=== PATIENT | male | born 1960 | race African-American/Black ===

== ENCOUNTER 2017-10-22 19:13 | Inpatient (IN) | payer OTHER ==
[2017-10-22 19:27] VITALS: BMI 26.0
--- NOTE | 2017-10-22 21:14 | HP ---
CIWA Score - CIWA Score Nausea/Vomitin-Mild Nausea/No Vomiting Muscle Tremors: 3 Anxiety: 4-Mod. Anxious/Guarded Agitation: 4-Moderately Restless Paroxysmal Sweats: No Perspiration Orientation: 0-Oriented Tacttile Disturbances: 2-Mild Itch/Numbness/Burn Auditory Disturbances: 0-None Visual Disturbances: 0-None Headache: 3-Moderate CIWA-Ar Total Score: 17 Admission ROS BHS - HPI Chief Complaint: Alcohol withdrawal symptoms Allergies/Adverse Reactions: Allergies Allergy/AdvReac Type Severity Reaction Status Date / Time Penicillins Allergy Severe Hives Verified 10/22/17 19:55 History of Present Illness: 57 years old male with a long history of alcohol dependence is seeking admission to detox. Patient has been in previous detox and reports insignificant period of sobriety. She has diabetes type 2 on on insulin and anxiety. Denies suicide attempt and suicidal ideation at this time. Exam Limitations: No Limitations - Ebola screening Have you traveled outside of the country in the last 21 days: No Have you had contact with anyone from an Ebola affected area: No Have you been sick,other than usual withdrawal symptoms: No Do you have a fever: No - Review of Systems Constitutional: Chills, Night Sweats, Weakness EENT: reports: Blurred Vision Respiratory: reports: No Symptoms reported Cardiac: reports: No Symptoms Reported GI: reports: Diarrhea (x 3), Poor Appetite, Poor Fluid Intake, Abdominal cramping : reports: No Symptoms Reported Musculoskeletal: reports: Muscle Pain Integumentary: reports: Dryness Neuro: reports: Tremors Endocrine: reports: No Symptoms Reported Hematology: reports: No Symptoms Reported Psychiatric: reports: Anxious, Depressed Other Systems: Reviewed and Negative Patient History - Patient Medical History Hx Anemia: No Hx Asthma: No Hx Chronic Obstructive Pulmonary Disease (COPD): No Hx Cancer: No Hx Cardiac Disorders: No Hx Congestive Heart Failure: No Hx Hypertension: No Hx Hypercholesterolemia: No Hx Pacemaker: No HX Cerebrovascular Accident: No Hx Seizures: No Hx Diabetes: Yes (Humolog and Basalgar) Hx Gastrointestinal Disorders: No Hx Liver Disease: No Hx Genitourinary Disorders: No Hx Sexually Transmitted Disorders: No Hx Renal Disease (ESRD): No Hx Thyroid Disease: No Hx Human Immunodeficiency Virus (HIV): No (Negative 1996) Hx Hepatitis C: No Hx Depression: Yes (Not on medication) Hx Suicide Attempt: No Hx Bipolar Disorder: No Hx Schizophrenia: No - Patient Surgical History Past Surgical History: No - PPD History Previous Implant?: Yes Documented Results: Negative w/o proof Implanted On Prior [facility] Admission?: No PPD to be Administered?: Yes - Reproductive History Patient is a Female of Child Bearing Age (11 -55 yrs old): No (Male) - Smoking Cessation Smoking history: Current every day smoker Have you smoked in the past 12 months: Yes Aproximately how many cigarettes per day: 2 Hx Chewing Tobacco Use: No Initiated information on smoking cessation: Yes 'Breaking Loose' booklet given: 10/22/17 - Substance & Tx. History Hx Alcohol Use: Yes Hx Substance Use: Yes Substance Use Type: Alcohol, Cocaine Hx Substance Use Treatment: Yes ([facility] 1999) - Substances Abused Alcohol Route: Oral Frequency: Daily Amount used: BEER- 4 (40oz) Age of first use: 11 Date of Last Use: 10/22/17 Cocaine Route: Smoking Frequency: 3-6 times per week Amount used: $50- $300 Age of first use: 30 Date of Last Use: 10/15/17 Family Disease History - Family Disease History Family Disease History: Diabetes: Mother, Brother Admission Physical Exam S - Vital Signs Vital Signs: Vital Signs - 24 hr 10/22/17 19:25 Temperature 98.8 F Pulse Rate 60 Respiratory 18 Rate Blood Pressure 141/78 - Physical General Appearance: Yes: Moderate Distress HEENTM: Yes: EOMI, Normal ENT Inspection, Normocephalic, Normal Voice, LIV Respiratory: Yes: Lungs Clear, Normal Breath Sounds, No Respiratory Distress Neck: Yes: Supple Breast: Yes: Breast Exam Deferred Cardiology: Yes: Regular Rhythm, Regular Rate Abdominal: Yes: Normal Bowel Sounds Genitourinary: Yes: Within Normal Limits Back: Yes: Normal Inspection Musculoskeletal: Yes: Within Normal Limits Extremities: Yes: Tremors Neurological: Yes: Alert, Normal Mood/Affect Integumentary: Yes: Warm Lymphatic: Yes: Within Normal Limits - Diagnostic (1) Alcohol dependence with uncomplicated withdrawal Current Visit: Yes Status: Chronic (2) Diabetes type 2, uncontrolled Current Visit: Yes Status: Chronic (3) Depression Current Visit: Yes Status: Chronic Qualifiers: Depression Type: unspecified Qualified Code(s): F32.9 - Major depressive disorder, single episode, unspecified Cleared for Admission [facility] - Detox or Rehab [facility] Level of Care: Medically Managed Detox Regimen/Protocol: Librium [facility] Breath Alcohol Content Breath Alcohol Content: 0 Urine Drug Screen - Results Drug Screen Negative: Yes
[2017-10-22] MEDS ORDERED: MAGNESIUM CITRATE 300 ML BOTTLE PO PRN (21:28)
[2017-10-22] MEDS ORDERED: MAGNESIUM HYDROX 2400MG/30ML ORAL SUSPENSION 30 ML CUP PO PRN (21:28)
[2017-10-22] MEDS ORDERED: NICOTINE POLACRILEX 2 MG GUM BC PRN (21:28)
[2017-10-22] MEDS ORDERED: chlordiazePOXIDE HCL 25 MG CAPSULE PO PRN (21:28)
[2017-10-22] MEDS ORDERED: ACETAMINOPHEN 325 MG TABLET (FP) PO PRN (21:28)
[2017-10-22] MEDS ORDERED: LOPERAMIDE HCL 2 MG CAPSULE PO PRN (21:28)
[2017-10-22] MEDS ORDERED: MENTHOL/PHENOL 1 EACH UD MM PRN (21:28)
[2017-10-22] MEDS ORDERED: MAG HYDROX/AL HYDROX/SIMETH 30 ML UNIT-DOSE CUP PO PRN (21:28)
[2017-10-22] MEDS ORDERED: P-EPHED 60MG/TRIPROLIDI 2.5MG TABLET PO PRN (21:28)
[2017-10-22] MEDS ORDERED: guaiFENesin/D-METHORPHAN HB 10 ML UNIT-DOSE CUPS PO PRN (21:28)
[2017-10-22] MEDS ORDERED: PATIENT'S OWN MEDICATION (NON-FORMULARY) (Insulin Lispro [Humalog] 5 UNIT) SQ SCH (22:00)
[2017-10-22] MEDS ORDERED: MELATONIN 5 MG TABLETS PO PRN (22:00)
[2017-10-22] MEDS: chlordiazePOXIDE HCL 25 MG CAPSULE PO SCH (22:45)
[2017-10-22] MEDS: THIAMINE HCL 100 MG TABLET (FP) PO SCH (22:48)
[2017-10-23 01:35] LABS: URINE APPEARANCE CLEAR; URINE BILIRUBIN NEGATIVE (<2.0 mg/dL); URINE COLOR YELLOW; URINE GLUCOSE (UA) 1+ (NEGATIVE); URINE KETONE NEGATIVE (NEGATIVE); URINE LEUK ESTERASE NEGATIVE (NEGATIVE); URINE NITRITE NEGATIVE (NEGATIVE); URINE PROTEIN NEGATIVE (NEGATIVE); URINE UROBILINOGEN NEGATIVE mg/dL (0.2-1.0)
[2017-10-23] MEDS: chlordiazePOXIDE HCL 25 MG CAPSULE PO SCH ×4 (05:21→22:07)
[2017-10-23] MEDS: INSULIN (NOVOLOG) ASPART 100 UNITS/ML 10ML VIAL SQ SCH ×4 (07:40→21:43)
--- NOTE | 2017-10-23 09:23 | PN ---
S CIWA - CIWA Score Nausea/Vomitin Muscle Tremors: 3 Anxiety: 3 Agitation: 3 Paroxysmal Sweats: 1-Minimal Palms Moist Orientation: 0-Oriented Tacttile Disturbances: 1-Very Mild Itch/Numbness Auditory Disturbances: 1-Very Mild Visual Disturbances: 0-None Headache: 2-Mild CIWA-Ar Total Score: 17 BHS Progress Note (SOAP) Subjective: alert,irritable,anxious,interrupted sleep,tremor Objective: 10/23/17 09:20 Vital Signs Temperature 97.7 F 10/23/17 09:10 Pulse Rate 59 L 10/23/17 09:10 Respiratory Rate 18 10/23/17 09:10 Blood Pressure 137/92 10/23/17 09:10 O2 Sat by Pulse Oximetry (%) 10/23/17 09:21 ekg sinus bradycardia 55/min qt/cad625/422 no chest pain,no sob,no dizziness 10/23/17 09:22 Laboratory Last Values POC Glucometer 234 UNITS (80-120) 10/23/17 05:22 Urine Color Yellow 10/22/17 23:00 Urine Appearance Clear 10/22/17 23:00 Urine pH 6.0 (5.0-8.0) 10/22/17 23:00 Ur Specific [place] 1.020 (1.001-1.035) 10/22/17 23:00 Urine Protein Negative (NEGATIVE) 10/22/17 23:00 Urine Glucose (UA) 1+ (NEGATIVE) H 10/22/17 23:00 Urine Ketones Negative (NEGATIVE) 10/22/17 23:00 Urine Blood Negative (NEGATIVE) 10/22/17 23:00 Urine Nitrite Negative (NEGATIVE) 10/22/17 23:00 Urine Bilirubin Negative (<2.0 mg/dL) 10/22/17 23:00 Urine Urobilinogen Negative mg/dL (0.2-1.0) 10/22/17 23:00 Ur Leukocyte Esterase Negative (NEGATIVE) 10/22/17 23:00 labs pending Assessment: 10/23/17 09:22 withdrawal symptom Plan: continue detox
--- NOTE | 2017-10-23 09:49 | EKG ---
Test Reason : Blood Pressure : / mmHG Vent. Rate : 055 BPM Atrial Rate : 055 BPM P-R Int : 150 ms QRS Dur : 088 ms QT Int : 442 ms P-R-T Axes : 064 002 032 degrees QTc Int : 422 ms SINUS BRADYCARDIA OTHERWISE NORMAL ECG NO PREVIOUS ECGS AVAILABLE Confirmed by David Joshi MD ([id number]) on 10/23/2017 9:49:14 AM Referred By: Confirmed By:David Joshi MD
[2017-10-23] MEDS: PRENATAL VITAMINS W/ FOLIC ACID TABLET (FP) PO SCH (10:11)
[2017-10-23] MEDS: NICOTINE 14 MG/24 HOURS TOPICAL PATCH TD SCH (10:12)
[2017-10-23 10:36] LABS: HEMATOCRIT 37.9 % (35.4-49); MCH 27.8 pg (25.7-33.7); MCHC 31.8 g/dl (32.0-35.9); MEAN CELL VOLUME 87.7 fl (80-96); MEAN PLT VOLUME 8.3 fl (7.5-11.1); PLATELET COUNT 246 K/MM3 (134-434); RBC 4.32 M/mm3 (4.00-5.60); RDW 13.9 % (11.9-15.9); WHITE BLOOD COUNT 4.7 K/mm3 (4.0-10.0)
[2017-10-23 10:53] LABS: CHLORIDE 105 mmol/L (98-107); POTASSIUM 4.3 mmol/L (3.5-5.1); SODIUM 140 mmol/L (136-145)
[2017-10-23 11:01] LABS: ALBUMIN 3.4 g/dl (3.4-5.0); ALK PHOS 56 U/L (45-117); ANION GAP 10 MMOL/L (8-16); BILIRUBIN,TOTAL 0.7 mg/dL (0.2-1.0); BLOOD UREA NITROGEN 13 mg/dL (7-18); CALCIUM 8.6 mg/dL (8.5-10.1); CO2 25 mmol/L (21-32); CREATININE 1.1 mg/dL (0.7-1.3); SGOT/AST 19 U/L (15-37); SGPT/ALT 32 U/L (12-78); TOT PROT 6.6 g/dl (6.4-8.2)
[2017-10-23 11:12] LABS: GLUCOSE,RANDOM 313 mg/dL (74-106)
[2017-10-23] MEDS ORDERED: INSULIN (NOVOLOG) ASPART 100 UNITS/ML 10ML VIAL ONE ×3 (11:35→21:11)
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
[2017-10-23] MEDS ORDERED: hydrOXYzine PAMOATE 25 MG CAPSULE (FP) PO PRN (12:57)
[2017-10-23] MEDS: THIAMINE HCL 100 MG TABLET (FP) PO SCH (22:07)
[2017-10-23] MEDS: IBUPROFEN 400 MG TABLET (FP) PO PRN (22:08)
[2017-10-24] MEDS: chlordiazePOXIDE HCL 25 MG CAPSULE PO SCH ×3 (05:26→17:03)
[2017-10-24] MEDS: INSULIN (NOVOLOG) ASPART 100 UNITS/ML 10ML VIAL SQ SCH ×4 (07:16→22:10)
[2017-10-24] MEDS ORDERED: INSULIN (NOVOLOG) ASPART 100 UNITS/ML 10ML VIAL ONE ×5 (08:13→22:12)
--- NOTE | 2017-10-24 08:52 | PN ---
S CIWA - CIWA Score Nausea/Vomitin Muscle Tremors: 3 Anxiety: 2 Agitation: 2 Paroxysmal Sweats: 1-Minimal Palms Moist Orientation: 0-Oriented Tacttile Disturbances: 1-Very Mild Itch/Numbness Auditory Disturbances: 1-Very Mild Visual Disturbances: 0-None Headache: 2-Mild CIWA-Ar Total Score: 15 BHS Progress Note (SOAP) Subjective: alert,irritable,anxious,interrupted sleep,tremor Objective: 10/24/17 08:51 Vital Signs Temperature 96.4 F L 10/24/17 06:33 Pulse Rate 66 10/24/17 06:33 Respiratory Rate 18 10/24/17 06:33 Blood Pressure 128/78 10/24/17 06:33 O2 Sat by Pulse Oximetry (%) Assessment: 10/24/17 08:51 withdrawal symptom Plan: continue detox,psychiatric reevaluation by patient's request
[2017-10-24] MEDS: PRENATAL VITAMINS W/ FOLIC ACID TABLET (FP) PO SCH (10:34)
[2017-10-24] MEDS: NICOTINE 14 MG/24 HOURS TOPICAL PATCH TD SCH (10:35)
--- NOTE | 2017-10-24 17:11 | PN ---
Psychiatric Progress Note Vital Signs: Vital Signs Period Temp Pulse Resp BP Sys/Tadeo Pulse Ox Last 24 Hr 96.4 F-98.1 F 66-91 18-18 120-136/72-88 Date of Session: 10/24/17 Chief Complaint:: "I can't sleep through the night and i still have anxiety." HPI: Pt. admitted to for alcohol, cocaine, and marijuana dependence. ROS: diabetes Current Medications: Active Medications Generic Name Dose Route Start Last Admin Trade Name Freq PRN Reason Stop Dose Admin Acetaminophen 650 mg 10/22/17 21:28 Tylenol - PO Q4H PRN FEVER Al Hydroxide/Mg Hydroxide 30 ml 10/22/17 21:28 Mylanta Oral Suspension - PO Q6H PRN DYSPEPSIA Chlordiazepoxide HCl 15 mg 10/24/17 23:00 Librium - PO 10/25/17 17:01 [id number] DALE Chlordiazepoxide HCl 25 mg 10/22/17 21:28 Librium - PO 10/25/17 21:27 Q4H PRN WITHDRAWAL(CONT SUBST) Chlordiazepoxide HCl 10 mg 10/25/17 23:00 Librium - PO 10/26/17 17:01 [id number] DALE Eucalyptus/Menthol/Phenol/Sorbitol 1 each 10/22/17 21:28 Cepastat Lozenge - MM Q4H PRN SORE THROAT Guaifenesin 10 ml 10/22/17 21:28 Robitussin Dm - PO Q6H PRN COUGH Hydroxyzine Pamoate 25 mg 10/23/17 12:57 Vistaril - PO Q4H PRN ANXIETY Ibuprofen 400 mg 10/22/17 21:28 10/23/17 22:08 Motrin - PO 400 mg Q6H PRN Administration PAIN LEVEL 4-6 Insulin Aspart 0 units 10/23/17 16:30 10/24/17 17:05 Novolog Vial SQ 2 units ACHS DALE Administration Protocol Loperamide HCl 4 mg 10/22/17 21:28 Imodium - PO Q6H PRN DIARRHEA Magnesium Citrate 300 ml 10/22/17 21:28 Citroma - PO Q48H PRN CONSTIPATION Magnesium Hydroxide 30 ml 10/22/17 21:28 Milk Of Magnesia - PO DAILY PRN CONSTIPATION Melatonin 5 mg 10/22/17 22:00 10/23/17 22:07 Melatonin PO 5 mg HS PRN Administration INSOMNIA Nicotine 14 mg 10/23/17 10:00 10/24/17 10:35 Nicoderm Patch - TD 14 mg DAILY DALE Administration Nicotine Polacrilex 2 mg 10/22/17 21:28 Nicorette Gum - BC Q2H PRN NICOTINE REPLACEMENT RX Multivit/Folic Acid/Iron 1 tab 10/23/17 10:00 10/24/17 10:34 Vitamins (Sjr) - PO 1 tab DAILY DALE Administration Pseudoephedrine/Triprolidine 1 combo 10/22/17 21:28 Actifed - PO TID PRN NASAL CONGESTION Thiamine HCl 100 mg 10/22/17 22:00 10/23/17 22:07 Vitamin B1 - PO 100 mg HS DALE Administration Medication(s) Change(s): Yes. Will increase vistaril to 50mg q4 and melatonin to 8mg qhs Current Side Effect: No Lab tests ordered: No Lab tests reviewed: Yes Provider note:: Supervisory Forester met with patient for psychiatric follow up. Pt. seen by administrative underwriter yesterday. Patient reports difficulty sleeping through the night and increase anxiety. Vistaril 25mg increased to 50mg and Melatonin 5mg qhs increased to 8mg. Pt. refusing alternative sleep aid. Pt. preferred to accept natual sleep aid but at a higher dose. Sleep hygiene discussed. Sleep hygiene discussed. Pt. satisifed and receptive to feedback. Will continue to monitor. Total face to face time:: 25 Mental Status Exam - Mental Status Exam Alert and Oriented to: Time, Place, Person Cognitive Function: Good Patient Appearance: Well Groomed Mood: Hopeful, Euthymic Affect: Appropriate Patient Behavior: Appropriate, Cooperative Speech Pattern: Clear, Appropriate Voice Loudness: Normal Thought Process: Intact, Goal Oriented Thought Disorder: Not Present Hallucinations: Denies Suicidal Ideation: Denies Homicidal Ideation: Denies Insight/Judgement: Poor Sleep: Poorly Appetite: Fair Muscle strength/Tone: Normal Gait/Station: Normal Psychiatric Treatment Plan - Problem List (1) Anxiety Current Visit: Yes (2) Alcohol dependence with uncomplicated withdrawal Current Visit: Yes (3) Insomnia Current Visit: Yes
[2017-10-24] MEDS ORDERED: hydrOXYzine PAMOATE 25 MG CAPSULE (FP) PO PRN (17:13)
[2017-10-24] MEDS ORDERED: MELATONIN 5 MG TABLETS PO PRN (22:00)
[2017-10-24] MEDS: MELATONIN 5 MG, MELATONIN 3 MG PO PRN (22:13)
[2017-10-24] MEDS: THIAMINE HCL 100 MG TABLET (FP) PO SCH (22:13)
[2017-10-24] MEDS: IBUPROFEN 400 MG TABLET (FP) PO PRN (22:14)
[2017-10-24] MEDS: chlordiazePOXIDE 5 MG CAPSULE PO SCH (22:14)
[2017-10-25] MEDS: chlordiazePOXIDE 5 MG CAPSULE PO SCH ×3 (06:00→21:15)
[2017-10-25] MEDS ORDERED: INSULIN (NOVOLOG) ASPART 100 UNITS/ML 10ML VIAL ONE ×4 (06:10→22:59)
[2017-10-25] MEDS: INSULIN (NOVOLOG) ASPART 100 UNITS/ML 10ML VIAL SQ SCH ×4 (07:00→23:22)
[2017-10-25] MEDS: PRENATAL VITAMINS W/ FOLIC ACID TABLET (FP) PO SCH (10:14)
[2017-10-25] MEDS: NICOTINE 14 MG/24 HOURS TOPICAL PATCH TD SCH (10:14)
--- NOTE | 2017-10-25 13:29 | PN ---
S Progress Note (SOAP) Subjective: alert,interrupted sleep Objective: 10/25/17 13:28 Vital Signs Temperature 97.3 F L 10/25/17 13:18 Pulse Rate 75 10/25/17 13:18 Respiratory Rate 18 10/25/17 13:18 Blood Pressure 129/84 10/25/17 13:18 O2 Sat by Pulse Oximetry (%) Assessment: 10/25/17 13:28 withdrawal symptom Plan: continue detox,discharge in am
[2017-10-25] MEDS: chlordiazePOXIDE HCL 10 MG CAPSULE PO SCH (23:01)
[2017-10-25] MEDS: IBUPROFEN 400 MG TABLET (FP) PO PRN (23:06)
[2017-10-25] MEDS: MELATONIN 5 MG, MELATONIN 3 MG PO PRN (23:09)
[2017-10-25] MEDS: THIAMINE HCL 100 MG TABLET (FP) PO SCH (23:22)
[2017-10-26] MEDS: chlordiazePOXIDE HCL 10 MG CAPSULE PO SCH (06:02)
[2017-10-26 06:20] VITALS: BP 135/89; PULSE 72; TEMP 96.8
[2017-10-26] MEDS ORDERED: INSULIN (NOVOLOG) ASPART 100 UNITS/ML 10ML VIAL ONE (07:35)
--- NOTE | 2017-10-26 08:23 | PN ---
S Progress Note (SOAP) Subjective: alert,no complaint Objective: 10/26/17 08:22 Vital Signs Temperature 96.8 F L 10/26/17 06:00 Pulse Rate 72 10/26/17 06:00 Respiratory Rate 18 10/26/17 06:00 Blood Pressure 135/89 10/26/17 06:00 O2 Sat by Pulse Oximetry (%) Assessment: 10/26/17 08:22 detox completed,no withdrawal symptom Plan: discharge today,follow up with after care program as arrangement
--- NOTE | 2017-10-26 08:26 | DS ---
[facility] Detox Discharge Summary Admission Date: 10/22/17 Discharge Date: 10/26/17 - History Present History: Alcohol Dependence Additional Comments: follow up with after care program as arrangement Pertinent Past History: type 2 dm - Physical Exam Results Vital Signs: Vital Signs Temperature 96.8 F L 10/26/17 06:00 Pulse Rate 72 10/26/17 06:00 Respiratory Rate 18 10/26/17 06:00 Blood Pressure 135/89 10/26/17 06:00 O2 Sat by Pulse Oximetry (%) Pertinent Admission Physical Exam Findings: withdrawal sisns and symptom - Treatment Hospital Course: Detox Protocol Followed, Detoxed Safely, Responded well, Discharged Condition Good Patient has Accepted a Rehab Referral to: [facility] arrangement - Medication Discharge Medications: Ambulatory Orders Insulin Glargine,Hum.rec.anlog [Lantus] 10 units SQ HS 10/22/17 Insulin Lispro [Humalog] unit SQ TID 10/22/17 - Diagnosis (1) Alcohol dependence with uncomplicated withdrawal Current Visit: Yes Status: Acute (2) Depression Current Visit: Yes Status: Chronic Qualifiers: Depression Type: unspecified Qualified Code(s): F32.9 - Major depressive disorder, single episode, unspecified (3) Diabetes type 2, uncontrolled Current Visit: Yes Status: Chronic - AMA Did Patient Leave Against Medical Advice: No
[2017-10-26] MEDS: PRENATAL VITAMINS W/ FOLIC ACID TABLET (FP) PO SCH (10:25)
[2017-10-26] MEDS: NICOTINE 14 MG/24 HOURS TOPICAL PATCH TD SCH (10:25)
[2017-10-26] MEDS ORDERED: INSULIN (LEVEMIR) 100 UNITS/ML UNITS SQ SCH (22:00)
== END 2017-10-26 10:20 | disposition other institution (70) | DRG 774 ==
LOC: YASAS 19:13 → Y6N 20:20
PROVIDERS: ADMIT Surgery; ATTEND Surgery
PROC: HZ2ZZZZ Detoxification Services for Substance Abuse Treatment (ICD-10-PCS; principal; 2017-10-22)
DX: F10.230 Alcohol dependence with withdrawal, uncomplicated (principal); F14.20 Cocaine dependence, uncomplicated; F12.20 Cannabis dependence, uncomplicated; F31.9 Bipolar disorder, unspecified; F41.9 Anxiety disorder, unspecified; E11.65 Type 2 diabetes mellitus with hyperglycemia; Z79.4 Long term (current) use of insulin; G47.00 Insomnia, unspecified; Z88.0 Allergy status to penicillin
CPT/HCPCS: 36415; 80053; 81003; 82962; 85027; 86593; 93005; 93010

== ENCOUNTER 2017-10-26 10:31 | Inpatient (IN) | payer OTHER ==
[2017-10-26] MEDS ORDERED: MAGNESIUM CITRATE 300 ML BOTTLE PO PRN (11:52)
[2017-10-26] MEDS ORDERED: guaiFENesin/D-METHORPHAN HB 10 ML UNIT-DOSE CUPS PO PRN (11:52)
[2017-10-26] MEDS ORDERED: MENTHOL/PHENOL 1 EACH UD MM PRN (11:52)
[2017-10-26] MEDS ORDERED: P-EPHED 60MG/TRIPROLIDI 2.5MG TABLET PO PRN (11:52)
[2017-10-26] MEDS ORDERED: LOPERAMIDE HCL 2 MG CAPSULE PO PRN (11:52)
--- NOTE | 2017-10-26 11:52 | HP ---
[facility] Rehab Assess/Revision - Admission History Admitted to Rehab from: [facility] Date of Admission to Rehab: 10/26/17 - Vital signs Vital Signs: Vital Signs Period Temp Pulse Resp BP Sys/Tadeo Pulse Ox Last 24 Hr 97.6 F 77 18 109/69 - Findings Detox History & Physical reviewed: Yes Concur with findings: Yes Comments/Additional Findings: for rehab as protocol Inpatient Rehab Admission - Initial Determination Are CD services needed?: Yes Free of communicable disease: Yes Not in need of hospitalization: Yes - Rehab Admission Criteria Previous failed treatment: Yes Poor recovery environment: Yes Comorbidities: Yes Lacks judgement: No Patient is meeting Inpatient Rehab admission criteria:: Yes
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
[2017-10-26] MEDS ORDERED: INSULIN (NOVOLOG) ASPART 100 UNITS/ML 10ML VIAL ONE ×2 (16:25→21:59)
[2017-10-26] MEDS: INSULIN SLIDING SCALE (NOVOLOG) 1 VIAL SQ SCH ×2 (16:50→21:09)
--- NOTE | 2017-10-26 18:02 | PN ---
[facility] Progress Note Note: Psychiatric nurse practitioner note: Pt. seen by Dr. Carranza. Dr. Carranza note read and appreciated. Melatonin 5mg increased to 8mg. Pt. was accepting melatonin 8mg while in detox and is requesting the same dose while in rehab. Verbal consent given.
[2017-10-26] MEDS: INSULIN (LEVEMIR) 100 UNITS/ML UNITS SQ SCH (21:09)
[2017-10-26] MEDS: IBUPROFEN 400 MG TABLET (FP) PO PRN (21:10)
[2017-10-26] MEDS: MELATONIN 5 MG, MELATONIN 3 MG PO PRN (21:11)
[2017-10-26] MEDS: THIAMINE HCL 100 MG TABLET (FP) PO SCH (21:12)
[2017-10-26] MEDS ORDERED: MELATONIN 5 MG TABLETS PO PRN ×2 (22:00)
[2017-10-27] MEDS: INSULIN SLIDING SCALE (NOVOLOG) 1 VIAL SQ SCH ×5 (07:30→21:22)
[2017-10-27] MEDS ORDERED: INSULIN (NOVOLOG) ASPART 100 UNITS/ML 10ML VIAL ONE ×2 (08:39→11:55)
[2017-10-27] MEDS: PRENATAL VITAMINS W/ FOLIC ACID TABLET (FP) PO SCH (09:24)
[2017-10-27] MEDS: NICOTINE 14 MG/24 HOURS TOPICAL PATCH TD SCH (09:24)
[2017-10-27] MEDS: THIAMINE HCL 100 MG TABLET (FP) PO SCH (21:18)
[2017-10-27] MEDS: ACETAMINOPHEN 325 MG TABLET (FP) PO PRN (21:19)
[2017-10-27] MEDS: INSULIN (LEVEMIR) 100 UNITS/ML UNITS SQ SCH (21:21)
[2017-10-27] MEDS: MELATONIN 5 MG, MELATONIN 3 MG PO PRN (21:26)
[2017-10-28] MEDS: INSULIN SLIDING SCALE (NOVOLOG) 1 VIAL SQ SCH ×4 (07:01→21:09)
[2017-10-28] MEDS ORDERED: INSULIN (NOVOLOG) ASPART 100 UNITS/ML 10ML VIAL ONE ×2 (07:01→16:32)
[2017-10-28] MEDS: PRENATAL VITAMINS W/ FOLIC ACID TABLET (FP) PO SCH (09:41)
[2017-10-28] MEDS: NICOTINE 14 MG/24 HOURS TOPICAL PATCH TD SCH (09:42)
[2017-10-28] MEDS: MELATONIN 5 MG, MELATONIN 3 MG PO PRN (21:08)
[2017-10-28] MEDS: THIAMINE HCL 100 MG TABLET (FP) PO SCH (21:08)
[2017-10-28] MEDS: INSULIN (LEVEMIR) 100 UNITS/ML UNITS SQ SCH (21:09)
[2017-10-29] MEDS ORDERED: INSULIN (NOVOLOG) ASPART 100 UNITS/ML 10ML VIAL ONE ×3 (07:16→16:23)
[2017-10-29] MEDS: INSULIN SLIDING SCALE (NOVOLOG) 1 VIAL SQ SCH ×4 (07:16→21:07)
[2017-10-29] MEDS: ACETAMINOPHEN 325 MG TABLET (FP) PO PRN ×2 (09:34→21:08)
[2017-10-29] MEDS: PRENATAL VITAMINS W/ FOLIC ACID TABLET (FP) PO SCH (09:34)
[2017-10-29] MEDS: NICOTINE 14 MG/24 HOURS TOPICAL PATCH TD SCH (09:35)
[2017-10-29] MEDS ORDERED: PT OWN MED DRAWER 7, Y5N ONE (19:12)
[2017-10-29] MEDS: INSULIN (LEVEMIR) 100 UNITS/ML UNITS SQ SCH (21:06)
[2017-10-29] MEDS: MELATONIN 5 MG, MELATONIN 3 MG PO PRN (21:08)
[2017-10-29] MEDS: THIAMINE HCL 100 MG TABLET (FP) PO SCH (21:09)
[2017-10-30] MEDS: INSULIN SLIDING SCALE (NOVOLOG) 1 VIAL SQ SCH ×4 (06:04→21:09)
[2017-10-30] MEDS: ACETAMINOPHEN 325 MG TABLET (FP) PO PRN (09:37)
[2017-10-30] MEDS: NICOTINE 14 MG/24 HOURS TOPICAL PATCH TD SCH (09:38)
[2017-10-30] MEDS: PRENATAL VITAMINS W/ FOLIC ACID TABLET (FP) PO SCH (09:38)
[2017-10-30] MEDS ORDERED: INSULIN (NOVOLOG) ASPART 100 UNITS/ML 10ML VIAL ONE ×3 (11:54→21:55)
--- NOTE | 2017-10-30 14:21 | PN ---
S Progress Note Note: Vital Signs Temperature 97.6 F 10/30/17 06:44 Pulse Rate 75 10/30/17 06:44 Respiratory Rate 18 10/30/17 06:44 Blood Pressure 118/80 10/30/17 06:44 O2 Sat by Pulse Oximetry (%) c/o of neuropathy left facial abscess bactrim PO x 5 days ibuprofen PRN neurontin for neuropathy TID continue to monitor
[2017-10-30] MEDS: GABAPENTIN 100 MG CAPSULE (FP) PO SCH (21:08)
[2017-10-30] MEDS: hydrOXYzine PAMOATE 50 MG CAPSULE (FP) PO PRN (21:08)
[2017-10-30] MEDS: THIAMINE HCL 100 MG TABLET (FP) PO SCH (21:08)
[2017-10-30] MEDS: MELATONIN 5 MG, MELATONIN 3 MG PO PRN (21:08)
[2017-10-30] MEDS: INSULIN (LEVEMIR) 100 UNITS/ML UNITS SQ SCH (21:10)
[2017-10-30] MEDS: SULFAMETHOXAZOLE/TRIMETHOPRIM 800MG/160MG D.S. TABLET PO SCH (21:11)
[2017-10-31] MEDS: GABAPENTIN 100 MG CAPSULE (FP) PO SCH ×3 (06:22→22:14)
[2017-10-31] MEDS: INSULIN SLIDING SCALE (NOVOLOG) 1 VIAL SQ SCH ×4 (07:22→22:24)
[2017-10-31] MEDS: PRENATAL VITAMINS W/ FOLIC ACID TABLET (FP) PO SCH (09:36)
[2017-10-31] MEDS: NICOTINE 14 MG/24 HOURS TOPICAL PATCH TD SCH (09:36)
[2017-10-31] MEDS: SULFAMETHOXAZOLE/TRIMETHOPRIM 800MG/160MG D.S. TABLET PO SCH (09:36)
[2017-10-31] MEDS ORDERED: INSULIN (NOVOLOG) ASPART 100 UNITS/ML 10ML VIAL ONE ×2 (11:43→17:01)
[2017-10-31] MEDS: THIAMINE HCL 100 MG TABLET (FP) PO SCH (22:14)
[2017-10-31] MEDS: INSULIN (LEVEMIR) 100 UNITS/ML UNITS SQ SCH (22:22)
[2017-11-01] MEDS: MELATONIN 5 MG, MELATONIN 3 MG PO PRN ×2 (00:47→21:18)
[2017-11-01] MEDS: hydrOXYzine PAMOATE 50 MG CAPSULE (FP) PO PRN ×2 (00:48→21:17)
[2017-11-01] MEDS: GABAPENTIN 100 MG CAPSULE (FP) PO SCH ×3 (06:18→21:16)
[2017-11-01] MEDS: INSULIN SLIDING SCALE (NOVOLOG) 1 VIAL SQ SCH ×4 (07:29→21:17)
[2017-11-01] MEDS ORDERED: INSULIN (NOVOLOG) ASPART 100 UNITS/ML 10ML VIAL ONE ×4 (07:44→22:24)
[2017-11-01] MEDS: SULFAMETHOXAZOLE/TRIMETHOPRIM 800MG/160MG D.S. TABLET PO SCH (09:38)
[2017-11-01] MEDS: PRENATAL VITAMINS W/ FOLIC ACID TABLET (FP) PO SCH (09:38)
[2017-11-01] MEDS: NICOTINE 14 MG/24 HOURS TOPICAL PATCH TD SCH (09:39)
[2017-11-01] MEDS: THIAMINE HCL 100 MG TABLET (FP) PO SCH (21:16)
[2017-11-01] MEDS: INSULIN (LEVEMIR) 100 UNITS/ML UNITS SQ SCH (21:18)
[2017-11-02] MEDS: GABAPENTIN 100 MG CAPSULE (FP) PO SCH ×3 (06:15→21:23)
[2017-11-02] MEDS: INSULIN SLIDING SCALE (NOVOLOG) 1 VIAL SQ SCH ×4 (07:10→21:24)
[2017-11-02] MEDS ORDERED: INSULIN (NOVOLOG) ASPART 100 UNITS/ML 10ML VIAL ONE ×3 (07:15→22:38)
[2017-11-02] MEDS: SULFAMETHOXAZOLE/TRIMETHOPRIM 800MG/160MG D.S. TABLET PO SCH (10:01)
[2017-11-02] MEDS: PRENATAL VITAMINS W/ FOLIC ACID TABLET (FP) PO SCH (10:01)
[2017-11-02] MEDS: NICOTINE 14 MG/24 HOURS TOPICAL PATCH TD SCH (10:01)
[2017-11-02] MEDS: MELATONIN 5 MG, MELATONIN 3 MG PO PRN (21:23)
[2017-11-02] MEDS: THIAMINE HCL 100 MG TABLET (FP) PO SCH (21:23)
[2017-11-02] MEDS: hydrOXYzine PAMOATE 50 MG CAPSULE (FP) PO PRN (21:23)
[2017-11-02] MEDS: INSULIN (LEVEMIR) 100 UNITS/ML UNITS SQ SCH (21:25)
[2017-11-03] MEDS: GABAPENTIN 100 MG CAPSULE (FP) PO SCH ×3 (06:18→21:08)
[2017-11-03] MEDS: ACETAMINOPHEN 325 MG TABLET (FP) PO PRN (06:21)
[2017-11-03] MEDS: INSULIN SLIDING SCALE (NOVOLOG) 1 VIAL SQ SCH ×4 (06:23→21:04)
[2017-11-03] MEDS: PRENATAL VITAMINS W/ FOLIC ACID TABLET (FP) PO SCH (09:37)
[2017-11-03] MEDS: NICOTINE 14 MG/24 HOURS TOPICAL PATCH TD SCH (09:38)
[2017-11-03] MEDS ORDERED: INSULIN (NOVOLOG) ASPART 100 UNITS/ML 10ML VIAL ONE ×2 (11:47→22:18)
[2017-11-03] MEDS: INSULIN (LEVEMIR) 100 UNITS/ML UNITS SQ SCH (21:04)
[2017-11-03] MEDS: MELATONIN 5 MG, MELATONIN 3 MG PO PRN (21:07)
[2017-11-03] MEDS: THIAMINE HCL 100 MG TABLET (FP) PO SCH (21:08)
[2017-11-03] MEDS: hydrOXYzine PAMOATE 50 MG CAPSULE (FP) PO PRN (21:10)
[2017-11-04] MEDS: GABAPENTIN 100 MG CAPSULE (FP) PO SCH ×3 (06:04→21:18)
[2017-11-04] MEDS: INSULIN SLIDING SCALE (NOVOLOG) 1 VIAL SQ SCH ×4 (06:08→21:20)
[2017-11-04] MEDS: PRENATAL VITAMINS W/ FOLIC ACID TABLET (FP) PO SCH (09:43)
[2017-11-04] MEDS: NICOTINE 14 MG/24 HOURS TOPICAL PATCH TD SCH (09:43)
[2017-11-04] MEDS ORDERED: INSULIN (NOVOLOG) ASPART 100 UNITS/ML 10ML VIAL ONE ×3 (11:28→21:55)
[2017-11-04] MEDS: THIAMINE HCL 100 MG TABLET (FP) PO SCH (21:18)
[2017-11-04] MEDS: INSULIN (LEVEMIR) 100 UNITS/ML UNITS SQ SCH (21:20)
[2017-11-04] MEDS ORDERED: INSULIN (LEVEMIR) 100 UNITS/ML UNITS SQ ONE (21:56)
[2017-11-05] MEDS: GABAPENTIN 100 MG CAPSULE (FP) PO SCH ×3 (06:11→21:06)
[2017-11-05] MEDS ORDERED: INSULIN (NOVOLOG) ASPART 100 UNITS/ML 10ML VIAL ONE ×3 (07:37→22:20)
[2017-11-05] MEDS: INSULIN SLIDING SCALE (NOVOLOG) 1 VIAL SQ SCH ×4 (07:37→21:05)
[2017-11-05] MEDS ORDERED: PT OWN MED DRAWER 7, Y5N ONE (08:59)
[2017-11-05] MEDS: PRENATAL VITAMINS W/ FOLIC ACID TABLET (FP) PO SCH (09:51)
[2017-11-05] MEDS: NICOTINE 14 MG/24 HOURS TOPICAL PATCH TD SCH (09:52)
[2017-11-05] MEDS: hydrOXYzine PAMOATE 50 MG CAPSULE (FP) PO PRN ×2 (10:45→21:07)
--- NOTE | 2017-11-05 14:31 | PN ---
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
[2017-11-05] MEDS: INSULIN (LEVEMIR) 100 UNITS/ML UNITS SQ SCH (21:05)
[2017-11-05] MEDS: THIAMINE HCL 100 MG TABLET (FP) PO SCH (21:07)
[2017-11-05] MEDS: MELATONIN 5 MG, MELATONIN 3 MG PO PRN (21:07)
[2017-11-06] MEDS: GABAPENTIN 100 MG CAPSULE (FP) PO SCH ×3 (06:12→21:11)
[2017-11-06] MEDS: INSULIN SLIDING SCALE (NOVOLOG) 1 VIAL SQ SCH ×4 (07:09→21:09)
[2017-11-06] MEDS ORDERED: INSULIN (NOVOLOG) ASPART 100 UNITS/ML 10ML VIAL ONE ×4 (07:09→22:11)
[2017-11-06] MEDS: IBUPROFEN 400 MG TABLET (FP) PO PRN (10:03)
[2017-11-06] MEDS: PRENATAL VITAMINS W/ FOLIC ACID TABLET (FP) PO SCH (10:03)
[2017-11-06] MEDS: hydrOXYzine PAMOATE 50 MG CAPSULE (FP) PO PRN ×2 (10:04→21:13)
[2017-11-06] MEDS: NICOTINE 14 MG/24 HOURS TOPICAL PATCH TD SCH (10:05)
--- NOTE | 2017-11-06 14:04 | PN ---
[facility] Progress Note Note: Vital Signs Temperature 97.9 F 11/06/17 07:14 Pulse Rate 84 11/06/17 07:14 Respiratory Rate 18 11/06/17 07:14 Blood Pressure 128/81 11/06/17 07:14 O2 Sat by Pulse Oximetry (%) Laboratory Last Values POC Glucometer 315 UNITS (80-120) 11/06/17 06:11 Patient with elevated BGM on sliding scale. last BGM 404 and was given 12 units of novolog. Increase levemir HS from 10 units to 12 units. Increase PO fluids continue to monitor
[2017-11-06] MEDS ORDERED: PT OWN MED DRAWER 7, Y5N ONE (19:30)
[2017-11-06] MEDS: INSULIN (LEVEMIR) 100 UNITS/ML UNITS SQ SCH (21:08)
[2017-11-06] MEDS: THIAMINE HCL 100 MG TABLET (FP) PO SCH (21:12)
[2017-11-06] MEDS: MELATONIN 5 MG, MELATONIN 3 MG PO PRN (21:12)
[2017-11-07] MEDS: GABAPENTIN 100 MG CAPSULE (FP) PO SCH ×3 (06:03→21:54)
[2017-11-07] MEDS: IBUPROFEN 400 MG TABLET (FP) PO PRN (06:04)
[2017-11-07] MEDS: INSULIN SLIDING SCALE (NOVOLOG) 1 VIAL SQ SCH ×4 (07:05→21:52)
[2017-11-07] MEDS ORDERED: INSULIN (NOVOLOG) ASPART 100 UNITS/ML 10ML VIAL ONE ×4 (07:05→21:52)
[2017-11-07] MEDS: PRENATAL VITAMINS W/ FOLIC ACID TABLET (FP) PO SCH (09:55)
[2017-11-07] MEDS: NICOTINE 14 MG/24 HOURS TOPICAL PATCH TD SCH (09:56)
[2017-11-07] MEDS: MAGNESIUM HYDROX 2400MG/30ML ORAL SUSPENSION 30 ML CUP PO PRN (13:51)
[2017-11-07] MEDS: INSULIN (LEVEMIR) 100 UNITS/ML UNITS SQ SCH (21:53)
[2017-11-07] MEDS: THIAMINE HCL 100 MG TABLET (FP) PO SCH (21:54)
[2017-11-08] MEDS: GABAPENTIN 100 MG CAPSULE (FP) PO SCH ×3 (06:19→21:07)
[2017-11-08] MEDS: INSULIN SLIDING SCALE (NOVOLOG) 1 VIAL SQ SCH ×4 (06:21→21:06)
[2017-11-08] MEDS ORDERED: INSULIN (NOVOLOG) ASPART 100 UNITS/ML 10ML VIAL ONE ×4 (06:21→21:53)
[2017-11-08] MEDS: PRENATAL VITAMINS W/ FOLIC ACID TABLET (FP) PO SCH (09:59)
[2017-11-08] MEDS: NICOTINE 14 MG/24 HOURS TOPICAL PATCH TD SCH (09:59)
[2017-11-08] MEDS ORDERED: PT OWN MED DRAWER 7, Y5N ONE ×2 (20:35→21:56)
[2017-11-08] MEDS: INSULIN (LEVEMIR) 100 UNITS/ML UNITS SQ SCH (21:06)
[2017-11-08] MEDS: THIAMINE HCL 100 MG TABLET (FP) PO SCH (21:07)
[2017-11-08] MEDS: MELATONIN 5 MG, MELATONIN 3 MG PO PRN (21:07)
[2017-11-09] MEDS: ACETAMINOPHEN 325 MG TABLET (FP) PO PRN (06:03)
[2017-11-09] MEDS: GABAPENTIN 100 MG CAPSULE (FP) PO SCH ×3 (06:03→21:02)
[2017-11-09] MEDS ORDERED: INSULIN (NOVOLOG) ASPART 100 UNITS/ML 10ML VIAL ONE ×3 (07:07→21:48)
[2017-11-09] MEDS: INSULIN SLIDING SCALE (NOVOLOG) 1 VIAL SQ SCH ×4 (07:07→20:59)
[2017-11-09] MEDS: PRENATAL VITAMINS W/ FOLIC ACID TABLET (FP) PO SCH (09:57)
[2017-11-09] MEDS: NICOTINE 14 MG/24 HOURS TOPICAL PATCH TD SCH (09:57)
[2017-11-09] MEDS ORDERED: PT OWN MED DRAWER 7, Y5N ONE (19:34)
[2017-11-09] MEDS: INSULIN (LEVEMIR) 100 UNITS/ML UNITS SQ SCH (20:59)
[2017-11-09] MEDS: MELATONIN 5 MG, MELATONIN 3 MG PO PRN (21:01)
[2017-11-10] MEDS: THIAMINE HCL 100 MG TABLET (FP) PO SCH ×2 (00:07→21:06)
[2017-11-10] MEDS: GABAPENTIN 100 MG CAPSULE (FP) PO SCH ×3 (05:56→21:05)
[2017-11-10] MEDS: INSULIN SLIDING SCALE (NOVOLOG) 1 VIAL SQ SCH ×4 (06:42→21:04)
[2017-11-10] MEDS ORDERED: INSULIN (NOVOLOG) ASPART 100 UNITS/ML 10ML VIAL ONE ×4 (06:42→21:47)
[2017-11-10] MEDS: PRENATAL VITAMINS W/ FOLIC ACID TABLET (FP) PO SCH (09:57)
[2017-11-10] MEDS: IBUPROFEN 400 MG TABLET (FP) PO PRN (09:57)
[2017-11-10] MEDS: NICOTINE 14 MG/24 HOURS TOPICAL PATCH TD SCH (09:58)
[2017-11-10] MEDS ORDERED: PNEUMOCOCCAL 23 VACCINE 0.5 ML VIAL IM ONE (12:00)
[2017-11-10] MEDS ORDERED: PT OWN MED DRAWER 7, Y5N ONE (19:45)
[2017-11-10] MEDS: INSULIN (LEVEMIR) 100 UNITS/ML UNITS SQ SCH (21:04)
[2017-11-10] MEDS: MELATONIN 5 MG, MELATONIN 3 MG PO PRN (21:06)
[2017-11-11] MEDS: GABAPENTIN 100 MG CAPSULE (FP) PO SCH ×3 (06:09→21:09)
[2017-11-11] MEDS: INSULIN SLIDING SCALE (NOVOLOG) 1 VIAL SQ SCH ×4 (07:04→21:09)
[2017-11-11] MEDS ORDERED: INSULIN (NOVOLOG) ASPART 100 UNITS/ML 10ML VIAL ONE ×4 (07:04→21:51)
[2017-11-11] MEDS: PRENATAL VITAMINS W/ FOLIC ACID TABLET (FP) PO SCH (09:38)
[2017-11-11] MEDS: NICOTINE 14 MG/24 HOURS TOPICAL PATCH TD SCH (09:39)
[2017-11-11] MEDS: THIAMINE HCL 100 MG TABLET (FP) PO SCH (21:07)
[2017-11-11] MEDS: MELATONIN 5 MG, MELATONIN 3 MG PO PRN (21:10)
[2017-11-11] MEDS: INSULIN (LEVEMIR) 100 UNITS/ML UNITS SQ SCH (21:10)
[2017-11-12] MEDS: GABAPENTIN 100 MG CAPSULE (FP) PO SCH ×3 (06:07→21:19)
[2017-11-12] MEDS: INSULIN SLIDING SCALE (NOVOLOG) 1 VIAL SQ SCH ×4 (06:11→21:20)
[2017-11-12] MEDS ORDERED: INSULIN (NOVOLOG) ASPART 100 UNITS/ML 10ML VIAL ONE ×4 (06:42→22:27)
[2017-11-12] MEDS: NICOTINE 14 MG/24 HOURS TOPICAL PATCH TD SCH (09:40)
[2017-11-12] MEDS: PRENATAL VITAMINS W/ FOLIC ACID TABLET (FP) PO SCH (09:40)
[2017-11-12] MEDS ORDERED: PT OWN MED DRAWER 7, Y5N ONE (19:22)
[2017-11-12] MEDS: THIAMINE HCL 100 MG TABLET (FP) PO SCH (21:19)
[2017-11-12] MEDS: MELATONIN 5 MG, MELATONIN 3 MG PO PRN (21:20)
[2017-11-12] MEDS: INSULIN (LEVEMIR) 100 UNITS/ML UNITS SQ SCH (21:20)
[2017-11-13] MEDS: GABAPENTIN 100 MG CAPSULE (FP) PO SCH ×3 (06:13→21:09)
[2017-11-13] MEDS: IBUPROFEN 400 MG TABLET (FP) PO PRN (06:13)
[2017-11-13] MEDS: INSULIN SLIDING SCALE (NOVOLOG) 1 VIAL SQ SCH ×4 (07:09→21:06)
[2017-11-13] MEDS ORDERED: INSULIN (NOVOLOG) ASPART 100 UNITS/ML 10ML VIAL ONE ×4 (07:09→21:58)
[2017-11-13] MEDS: NICOTINE 14 MG/24 HOURS TOPICAL PATCH TD SCH (10:00)
[2017-11-13] MEDS: PRENATAL VITAMINS W/ FOLIC ACID TABLET (FP) PO SCH (10:00)
[2017-11-13] MEDS: ACETAMINOPHEN 325 MG TABLET (FP) PO PRN (11:43)
[2017-11-13] MEDS: MAGNESIUM HYDROX 2400MG/30ML ORAL SUSPENSION 30 ML CUP PO PRN (14:09)
[2017-11-13] MEDS ORDERED: PT OWN MED DRAWER 7, Y5N ONE (20:05)
[2017-11-13] MEDS: THIAMINE HCL 100 MG TABLET (FP) PO SCH (21:07)
[2017-11-13] MEDS: INSULIN (LEVEMIR) 100 UNITS/ML UNITS SQ SCH (21:07)
[2017-11-13] MEDS: MELATONIN 5 MG, MELATONIN 3 MG PO PRN (21:07)
[2017-11-14] MEDS: ACETAMINOPHEN 325 MG TABLET (FP) PO PRN (06:07)
[2017-11-14] MEDS: GABAPENTIN 100 MG CAPSULE (FP) PO SCH ×3 (06:08→21:08)
[2017-11-14] MEDS ORDERED: INSULIN (NOVOLOG) ASPART 100 UNITS/ML 10ML VIAL ONE (07:03)
[2017-11-14] MEDS: INSULIN SLIDING SCALE (NOVOLOG) 1 VIAL SQ SCH ×4 (07:03→21:11)
[2017-11-14] MEDS: PRENATAL VITAMINS W/ FOLIC ACID TABLET (FP) PO SCH (09:47)
[2017-11-14] MEDS: NICOTINE 14 MG/24 HOURS TOPICAL PATCH TD SCH (09:48)
[2017-11-14] MEDS: IBUPROFEN 400 MG TABLET (FP) PO PRN (13:01)
--- NOTE | 2017-11-14 14:14 | PN ---
[facility] Progress Note Note: Vital Signs Temperature 98.3 F 11/14/17 06:51 Pulse Rate 81 11/14/17 06:51 Respiratory Rate 18 11/14/17 06:51 Blood Pressure 131/81 11/14/17 06:51 O2 Sat by Pulse Oximetry (%) Laboratory Last Values POC Glucometer 367 UNITS (80-120) 11/14/17 11:53 Glipizide 10 mg last taken five months ago. Reports concern regarding elevated BGM. Reports stopped taking medication d/t lapse in his insurance. Patient AOx3 no distress no adventitious breath sounds full ROM ambulating independently - DM II - Tinea pedis Plan: Will start glipizide 5 mg BID PO today continue NCS diet Tinactin foot cream increase PO fluids continue to monitor
[2017-11-14] MEDS: glipiZIDE 5 MG TABLET (FP) PO SCH (17:04)
[2017-11-14] MEDS ORDERED: PT OWN MED DRAWER 7, Y5N ONE (19:52)
[2017-11-14] MEDS: THIAMINE HCL 100 MG TABLET (FP) PO SCH (21:08)
[2017-11-14] MEDS: MELATONIN 5 MG, MELATONIN 3 MG PO PRN (21:09)
[2017-11-14] MEDS: INSULIN (LEVEMIR) 100 UNITS/ML UNITS SQ SCH (21:11)
[2017-11-14] MEDS: TOLNAFTATE 1% CREAM 15 GM TUBE TP SCH (21:13)
[2017-11-15] MEDS: GABAPENTIN 100 MG CAPSULE (FP) PO SCH ×3 (06:03→21:10)
[2017-11-15] MEDS: glipiZIDE 5 MG TABLET (FP) PO SCH ×2 (07:16→17:04)
[2017-11-15] MEDS ORDERED: INSULIN (NOVOLOG) ASPART 100 UNITS/ML 10ML VIAL ONE ×3 (07:16→16:48)
[2017-11-15] MEDS: INSULIN SLIDING SCALE (NOVOLOG) 1 VIAL SQ SCH ×4 (07:16→21:10)
[2017-11-15] MEDS: TOLNAFTATE 1% CREAM 15 GM TUBE TP SCH ×2 (09:49→21:09)
[2017-11-15] MEDS: PRENATAL VITAMINS W/ FOLIC ACID TABLET (FP) PO SCH (09:49)
[2017-11-15] MEDS: NICOTINE 14 MG/24 HOURS TOPICAL PATCH TD SCH (09:49)
[2017-11-15] MEDS: THIAMINE HCL 100 MG TABLET (FP) PO SCH (21:10)
[2017-11-15] MEDS: MELATONIN 5 MG, MELATONIN 3 MG PO PRN (21:10)
[2017-11-15] MEDS: INSULIN (LEVEMIR) 100 UNITS/ML UNITS SQ SCH (21:11)
[2017-11-16] MEDS: GABAPENTIN 100 MG CAPSULE (FP) PO SCH ×3 (06:12→21:35)
[2017-11-16] MEDS: glipiZIDE 5 MG TABLET (FP) PO SCH ×2 (06:12→16:40)
[2017-11-16] MEDS: INSULIN SLIDING SCALE (NOVOLOG) 1 VIAL SQ SCH ×4 (06:14→21:37)
[2017-11-16] MEDS ORDERED: INSULIN (NOVOLOG) ASPART 100 UNITS/ML 10ML VIAL ONE ×3 (06:36→16:27)
[2017-11-16] MEDS: PRENATAL VITAMINS W/ FOLIC ACID TABLET (FP) PO SCH (09:48)
[2017-11-16] MEDS: ACETAMINOPHEN 325 MG TABLET (FP) PO PRN (09:49)
[2017-11-16] MEDS: TOLNAFTATE 1% CREAM 15 GM TUBE TP SCH ×2 (10:57→21:37)
[2017-11-16] MEDS: NICOTINE 14 MG/24 HOURS TOPICAL PATCH TD SCH (10:57)
[2017-11-16] MEDS ORDERED: PT OWN MED DRAWER 7, Y5N ONE (20:58)
[2017-11-16] MEDS: MELATONIN 5 MG, MELATONIN 3 MG PO PRN (21:35)
[2017-11-16] MEDS: THIAMINE HCL 100 MG TABLET (FP) PO SCH (21:35)
[2017-11-16] MEDS: INSULIN (LEVEMIR) 100 UNITS/ML UNITS SQ SCH (21:37)
[2017-11-17] MEDS: GABAPENTIN 100 MG CAPSULE (FP) PO SCH ×3 (06:08→21:11)
[2017-11-17] MEDS: glipiZIDE 5 MG TABLET (FP) PO SCH ×2 (06:10→17:00)
[2017-11-17] MEDS: INSULIN SLIDING SCALE (NOVOLOG) 1 VIAL SQ SCH ×4 (06:12→21:07)
[2017-11-17] MEDS ORDERED: INSULIN (NOVOLOG) ASPART 100 UNITS/ML 10ML VIAL ONE ×3 (07:59→22:26)
[2017-11-17] MEDS: NICOTINE 14 MG/24 HOURS TOPICAL PATCH TD SCH (09:33)
[2017-11-17] MEDS: TOLNAFTATE 1% CREAM 15 GM TUBE TP SCH ×2 (09:33→21:11)
[2017-11-17] MEDS: PRENATAL VITAMINS W/ FOLIC ACID TABLET (FP) PO SCH (09:33)
[2017-11-17] MEDS: INSULIN (LEVEMIR) 100 UNITS/ML UNITS SQ SCH (21:10)
[2017-11-17] MEDS: THIAMINE HCL 100 MG TABLET (FP) PO SCH (21:11)
[2017-11-17] MEDS: MELATONIN 5 MG, MELATONIN 3 MG PO PRN (21:12)
[2017-11-17] MEDS ORDERED: PT OWN MED DRAWER 7, Y5N ONE (21:12)
[2017-11-18] MEDS: GABAPENTIN 100 MG CAPSULE (FP) PO SCH ×3 (06:10→21:01)
[2017-11-18] MEDS: glipiZIDE 5 MG TABLET (FP) PO SCH ×2 (06:10→16:32)
[2017-11-18] MEDS: INSULIN SLIDING SCALE (NOVOLOG) 1 VIAL SQ SCH ×4 (06:12→21:00)
[2017-11-18] MEDS ORDERED: INSULIN (NOVOLOG) ASPART 100 UNITS/ML 10ML VIAL ONE ×3 (06:49→22:02)
[2017-11-18] MEDS: NICOTINE 14 MG/24 HOURS TOPICAL PATCH TD SCH (09:33)
[2017-11-18] MEDS: PRENATAL VITAMINS W/ FOLIC ACID TABLET (FP) PO SCH (09:33)
[2017-11-18] MEDS: TOLNAFTATE 1% CREAM 15 GM TUBE TP SCH ×2 (09:33→21:01)
[2017-11-18] MEDS ORDERED: PT OWN MED DRAWER 7, Y5N ONE (18:54)
[2017-11-18] MEDS: INSULIN (LEVEMIR) 100 UNITS/ML UNITS SQ SCH (21:00)
[2017-11-18] MEDS: THIAMINE HCL 100 MG TABLET (FP) PO SCH (21:01)
[2017-11-18] MEDS: MELATONIN 5 MG, MELATONIN 3 MG PO PRN (21:01)
[2017-11-19] MEDS: GABAPENTIN 100 MG CAPSULE (FP) PO SCH ×3 (05:54→21:03)
[2017-11-19] MEDS: IBUPROFEN 400 MG TABLET (FP) PO PRN (06:16)
[2017-11-19] MEDS: INSULIN SLIDING SCALE (NOVOLOG) 1 VIAL SQ SCH ×4 (07:12→21:04)
[2017-11-19] MEDS: glipiZIDE 5 MG TABLET (FP) PO SCH ×2 (07:12→16:54)
[2017-11-19] MEDS ORDERED: INSULIN (NOVOLOG) ASPART 100 UNITS/ML 10ML VIAL ONE ×3 (07:12→16:29)
[2017-11-19] MEDS: PRENATAL VITAMINS W/ FOLIC ACID TABLET (FP) PO SCH (09:57)
[2017-11-19] MEDS: TOLNAFTATE 1% CREAM 15 GM TUBE TP SCH ×2 (09:57→21:00)
[2017-11-19] MEDS: NICOTINE 14 MG/24 HOURS TOPICAL PATCH TD SCH (09:57)
[2017-11-19] MEDS ORDERED: COLLOIDAL OATMEAL 1 BAR EACH TP PRN (11:57)
[2017-11-19] MEDS: LISINOPRIL 5 MG TABLET (FP) PO SCH (14:44)
[2017-11-19] MEDS: ASPIRIN 81 MG CHEWABLE TABLETS PO SCH (14:45)
[2017-11-19] MEDS: MELATONIN 5 MG, MELATONIN 3 MG PO PRN (21:03)
[2017-11-19] MEDS: THIAMINE HCL 100 MG TABLET (FP) PO SCH (21:03)
[2017-11-19] MEDS: INSULIN (LEVEMIR) 100 UNITS/ML UNITS SQ SCH (21:05)
[2017-11-19] MEDS: ATORVASTATIN CA 80 MG TABLET (FP) PO SCH (21:07)
[2017-11-20] MEDS: GABAPENTIN 100 MG CAPSULE (FP) PO SCH ×3 (06:10→21:05)
[2017-11-20] MEDS ORDERED: INSULIN (NOVOLOG) ASPART 100 UNITS/ML 10ML VIAL ONE ×3 (07:04→16:37)
[2017-11-20] MEDS: INSULIN SLIDING SCALE (NOVOLOG) 1 VIAL SQ SCH ×4 (07:05→21:04)
[2017-11-20] MEDS: glipiZIDE 5 MG TABLET (FP) PO SCH ×2 (07:05→16:56)
[2017-11-20] MEDS: ASPIRIN 81 MG CHEWABLE TABLETS PO SCH (09:45)
[2017-11-20] MEDS: LISINOPRIL 5 MG TABLET (FP) PO SCH (09:45)
[2017-11-20] MEDS: PRENATAL VITAMINS W/ FOLIC ACID TABLET (FP) PO SCH (09:45)
[2017-11-20] MEDS: IBUPROFEN 400 MG TABLET (FP) PO PRN (09:46)
[2017-11-20] MEDS: TOLNAFTATE 1% CREAM 15 GM TUBE TP SCH ×2 (09:47→21:04)
[2017-11-20] MEDS: NICOTINE 14 MG/24 HOURS TOPICAL PATCH TD SCH (09:47)
[2017-11-20] MEDS: MAG HYDROX/AL HYDROX/SIMETH 30 ML UNIT-DOSE CUP PO PRN (14:27)
[2017-11-20] MEDS: INSULIN (LEVEMIR) 100 UNITS/ML UNITS SQ SCH (21:04)
[2017-11-20] MEDS: MELATONIN 5 MG, MELATONIN 3 MG PO PRN (21:05)
[2017-11-20] MEDS: THIAMINE HCL 100 MG TABLET (FP) PO SCH (21:05)
[2017-11-20] MEDS: ATORVASTATIN CA 80 MG TABLET (FP) PO SCH (21:06)
[2017-11-21] MEDS: GABAPENTIN 100 MG CAPSULE (FP) PO SCH ×3 (06:11→21:26)
[2017-11-21] MEDS: IBUPROFEN 400 MG TABLET (FP) PO PRN ×2 (06:12→14:10)
[2017-11-21] MEDS ORDERED: INSULIN (NOVOLOG) ASPART 100 UNITS/ML 10ML VIAL ONE ×3 (07:03→16:59)
[2017-11-21] MEDS: INSULIN SLIDING SCALE (NOVOLOG) 1 VIAL SQ SCH ×4 (07:03→21:27)
[2017-11-21] MEDS: glipiZIDE 5 MG TABLET (FP) PO SCH ×2 (07:03→16:39)
[2017-11-21] MEDS: LISINOPRIL 5 MG TABLET (FP) PO SCH (09:43)
[2017-11-21] MEDS: ASPIRIN 81 MG CHEWABLE TABLETS PO SCH (09:43)
[2017-11-21] MEDS: PRENATAL VITAMINS W/ FOLIC ACID TABLET (FP) PO SCH (09:43)
[2017-11-21] MEDS: NICOTINE 14 MG/24 HOURS TOPICAL PATCH TD SCH (09:43)
[2017-11-21] MEDS: TOLNAFTATE 1% CREAM 15 GM TUBE TP SCH ×2 (09:44→21:33)
[2017-11-21] MEDS: INSULIN (LEVEMIR) 100 UNITS/ML UNITS SQ SCH (21:25)
[2017-11-21] MEDS: ATORVASTATIN CA 80 MG TABLET (FP) PO SCH (21:26)
[2017-11-21] MEDS: MELATONIN 5 MG, MELATONIN 3 MG PO PRN (21:26)
[2017-11-21] MEDS: THIAMINE HCL 100 MG TABLET (FP) PO SCH (21:26)
[2017-11-22] MEDS: glipiZIDE 5 MG TABLET (FP) PO SCH ×2 (06:16→16:36)
[2017-11-22] MEDS: GABAPENTIN 100 MG CAPSULE (FP) PO SCH ×3 (06:16→21:09)
[2017-11-22] MEDS: INSULIN SLIDING SCALE (NOVOLOG) 1 VIAL SQ SCH ×4 (06:19→21:09)
[2017-11-22] MEDS ORDERED: INSULIN (NOVOLOG) ASPART 100 UNITS/ML 10ML VIAL ONE ×3 (07:00→22:12)
[2017-11-22] MEDS: PRENATAL VITAMINS W/ FOLIC ACID TABLET (FP) PO SCH (09:58)
[2017-11-22] MEDS: LISINOPRIL 5 MG TABLET (FP) PO SCH (09:58)
[2017-11-22] MEDS: NICOTINE 14 MG/24 HOURS TOPICAL PATCH TD SCH (09:58)
[2017-11-22] MEDS: IBUPROFEN 400 MG TABLET (FP) PO PRN (09:59)
[2017-11-22] MEDS: ASPIRIN 81 MG CHEWABLE TABLETS PO SCH (09:59)
[2017-11-22] MEDS: TOLNAFTATE 1% CREAM 15 GM TUBE TP SCH ×2 (09:59→21:10)
--- NOTE | 2017-11-22 12:21 | PN ---
Psychiatric Progress Note Vital Signs: Vital Signs Period Temp Pulse Resp BP Sys/Tadeo Pulse Ox Last 24 Hr 98.0 F 78-93 16-18 123-130/64-75 Date of Session: 11/22/17 Chief Complaint:: Discharge Note HPI: Patient adressing Alcohol and Cocaine Dependence comorbid with Posttraumatic Stress Disorder, substance-Induced Mood Disorder and Substance- Induced Sleep Disorder ROS: DM Current Medications: Active Medications Generic Name Dose Route Start Last Admin Trade Name Freq PRN Reason Stop Dose Admin Acetaminophen 650 mg 10/26/17 11:52 11/16/17 09:49 Tylenol - PO 650 mg Q4H PRN Administration FEVER Al Hydroxide/Mg Hydroxide 30 ml 10/26/17 11:52 11/20/17 14:27 Mylanta Oral Suspension - PO 30 ml Q6H PRN Administration DYSPEPSIA Aspirin 81 mg 11/19/17 14:00 11/22/17 09:59 Asa - PO 81 mg DAILY DALE Administration Atorvastatin Calcium 80 mg 11/19/17 22:00 11/21/17 21:26 Lipitor - PO 80 mg HS DALE Administration Eucalyptus/Menthol/Phenol/Sorbitol 1 each 10/26/17 11:52 11/14/17 06:08 Cepastat Lozenge - MM 1 each Q4H PRN Administration SORE THROAT Gabapentin 200 mg 11/05/17 14:30 11/22/17 06:16 Neurontin - PO 200 mg TID DALE Administration Glipizide 5 mg 11/14/17 16:30 11/22/17 06:16 Glucotrol - PO 5 mg BID@0700,1630 DALE Administration Guaifenesin 10 ml 10/26/17 11:52 Robitussin Dm - PO Q6H PRN COUGH Hydroxyzine Pamoate 50 mg 10/26/17 11:52 11/06/17 21:13 Vistaril - PO 50 mg Q4H PRN Administration AGITATION Ibuprofen 400 mg 10/26/17 11:52 11/22/17 09:59 Motrin - PO 400 mg Q6H PRN Administration Pain Level 4-6 Insulin Aspart 1 vial 10/26/17 16:30 11/22/17 12:00 Novolog Vial Sliding Scale - SQ 6 units ACHS DALE Administration Protocol Insulin Detemir 12 units 11/06/17 22:00 11/21/17 21:25 Levemir Vial SQ 12 units HS DALE Administration Lisinopril 5 mg 11/19/17 14:00 11/22/17 09:58 Prinivil PO 5 mg DAILY DALE Administration Loperamide HCl 4 mg 10/26/17 11:52 Imodium - PO Q6H PRN DIARRHEA Magnesium Citrate 300 ml 10/26/17 11:52 Citroma - PO Q48H PRN CONSTIPATION Magnesium Hydroxide 30 ml 10/26/17 11:52 11/13/17 14:09 Milk Of Magnesia - PO 30 ml DAILY PRN Administration CONSTIPATION Melatonin 5 mg/ Melatonin 3 mg 8 mg 10/26/17 18:03 11/21/17 21:26 PO 8 mg HS PRN Administration INSOMNIA Nicotine 14 mg 10/27/17 10:00 11/22/17 09:58 Nicoderm Patch - TD 14 mg DAILY DALE Administration Multivit/Folic Acid/Iron 1 tab 10/27/17 10:00 11/22/17 09:58 Vitamins (Sjr) - PO 1 tab DAILY DALE Administration Pseudoephedrine/Triprolidine 1 combo 10/26/17 11:52 Actifed - PO TID PRN NASAL CONGESTION Thiamine HCl 100 mg 10/26/17 22:00 11/21/17 21:26 Vitamin B1 - PO 100 mg HS DALE Administration Tolnaftate 1 applic 11/14/17 22:00 11/22/17 09:59 Tinactin 1% Cream - TP Not Given BID DALE Current Side Effect: No Lab tests ordered: Yes Lab tests reviewed: Yes Provider note:: Patient will complete this program on 11/23/17. 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 He is stable for discharge on 11/23/17 Total face to face time:: 35 Mental Status Exam - Mental Status Exam Alert and Oriented to: Time, Place, Person Cognitive Function: Fair Patient Appearance: Well Groomed Mood: Hopeful, Euthymic Affect: Appropriate Patient Behavior: Cooperative Speech Pattern: Clear Voice Loudness: Normal Thought Process: Intact, Goal Oriented Thought Disorder: Not Present Hallucinations: Denies Suicidal Ideation: Denies Homicidal Ideation: Denies Insight/Judgement: Fair Sleep: Fair Appetite: Good Muscle strength/Tone: Normal Gait/Station: Normal Psychiatric Treatment Plan - Problem List (1) Alcohol dependence Current Visit: Yes (2) Cocaine dependence Current Visit: Yes Comment: As per self-report.Toxicology is negative on admission. (3) Post traumatic stress disorder (PTSD) Current Visit: No Comment: Self-report.Patient has dropped out of psychiatric OPD care.Not on medications. (4) Substance induced mood disorder Current Visit: Yes (5) Substance-induced sleep disorder Current Visit: Yes (6) Diabetes type 2, uncontrolled Current Visit: Yes Qualifiers: Glycemic state: with hyperglycemia Qualified Code(s): E11.65 - Type 2 diabetes mellitus with hyperglycemia (7) Polyneuropathy Current Visit: Yes Initial treatment plan: Patient will be discharged tomorrow and referred to [facility] for [facility] residential treatment
[2017-11-22] MEDS ORDERED: PT OWN MED DRAWER 7, Y5N ONE (20:00)
[2017-11-22] MEDS: MAG HYDROX/AL HYDROX/SIMETH 30 ML UNIT-DOSE CUP PO PRN (20:30)
[2017-11-22] MEDS: INSULIN (LEVEMIR) 100 UNITS/ML UNITS SQ SCH (21:08)
[2017-11-22] MEDS: THIAMINE HCL 100 MG TABLET (FP) PO SCH (21:09)
[2017-11-22] MEDS: MELATONIN 5 MG, MELATONIN 3 MG PO PRN (21:09)
[2017-11-22] MEDS: ATORVASTATIN CA 80 MG TABLET (FP) PO SCH (21:09)
[2017-11-23] MEDS: GABAPENTIN 100 MG CAPSULE (FP) PO SCH (06:04)
[2017-11-23] MEDS: glipiZIDE 5 MG TABLET (FP) PO SCH (06:04)
[2017-11-23] MEDS: IBUPROFEN 400 MG TABLET (FP) PO PRN (06:05)
[2017-11-23] MEDS: INSULIN SLIDING SCALE (NOVOLOG) 1 VIAL SQ SCH (06:08)
[2017-11-23 06:58] VITALS: BP 120/79; PULSE 91; TEMP 97.9
== END 2017-11-23 08:30 | disposition home or self-care (01) | DRG 772 ==
LOC: YASAS 10:31 → Y3W 10:33
PROVIDERS: ADMIT Psychiatry & Neurology Psychiatry; ATTEND Psychiatry & Neurology Psychiatry
PROC: HZ42ZZZ Group Counseling for Substance Abuse Treatment, Cognitive-Behavioral (ICD-10-PCS; principal; 2017-10-26)
DX: F10.20 Alcohol dependence, uncomplicated (principal); F14.20 Cocaine dependence, uncomplicated; F19.282 Other psychoactive substance dependence with psychoactive substance-induced sleep disorder; F19.24 Other psychoactive substance dependence with psychoactive substance-induced mood disorder; F43.10 Post-traumatic stress disorder, unspecified; E11.65 Type 2 diabetes mellitus with hyperglycemia; E11.42 Type 2 diabetes mellitus with diabetic polyneuropathy; Z79.4 Long term (current) use of insulin; G47.00 Insomnia, unspecified; B35.3 Tinea pedis
CPT/HCPCS: 82962; 90732; G0009

== ENCOUNTER 2022-05-22 12:45 | Inpatient (IN) | payer BC ==
[2022-05-22 13:15] VITALS: BMI 24.9
[2022-05-22] MEDS ORDERED: IBUPROFEN 400 MG TABLET (FP) PO PRN (14:07)
[2022-05-22] MEDS ORDERED: BISMUTH SUBSALICYLATE 262 MG/15 ML BTL PO PRN (14:07)
[2022-05-22] MEDS ORDERED: DICYCLOMINE HCL 10 MG CAPSULE PO PRN (14:07)
[2022-05-22] MEDS ORDERED: LOPERAMIDE HCL 2 MG CAPSULE PO PRN (14:07)
[2022-05-22] MEDS ORDERED: MAGNESIUM HYDROX 2400MG/30ML ORAL SUSPENSION 30 ML CUP PO PRN (14:07)
[2022-05-22] MEDS ORDERED: POLYETHYLENE GLYCOL (HEALTHYLAX) 3350 17 GM PACKET PO PRN (14:07)
[2022-05-22] MEDS ORDERED: chlordiazePOXIDE HCL 25 MG CAPSULE PO PRN (14:07)
[2022-05-22] MEDS ORDERED: NICOTINE POLACRILEX 4 MG GUM BUC PRN (14:07)
[2022-05-22] MEDS ORDERED: BENZONATATE 200 MG CAPSULE PO PRN (14:07)
[2022-05-22] MEDS ORDERED: ONDANSETRON *ODT* 4 MG TABLET SL PRN (14:07)
[2022-05-22] MEDS ORDERED: NICOTINE 21 MG/24 HOURS TOPICAL PATCH TD PRN (14:07)
[2022-05-22] MEDS ORDERED: BENZOCAINE/MENTHOL (CHLORASEPTIC ) LOZENGE MM PRN (14:07)
[2022-05-22] MEDS ORDERED: ACETAMINOPHEN 325 MG TABLET (FP) PO PRN (14:07)
[2022-05-22] MEDS ORDERED: guaiFENesin 600 MG TABLET.ER (FP) PO PRN (14:07)
[2022-05-22] MEDS ORDERED: MAG HYDROX/AL HYDROX/SIMETH 30 ML UNIT-DOSE CUP PO PRN (14:07)
[2022-05-22] MEDS ORDERED: chlordiazePOXIDE HCL 25 MG CAPSULE ONE (14:45)
[2022-05-22] MEDS: hydrOXYzine PAMOATE 25 MG CAPSULE (FP) PO PRN ×2 (15:25→22:30)
[2022-05-22] MEDS: NICOTINE 10 MG CARTRIDGE (INHALER) IH PRN (15:30)
[2022-05-22] MEDS: INSULIN SLIDING SCALE (NOVOLOG) 1 VIAL SQ SCH ×2 (15:36→22:32)
[2022-05-22] MEDS: chlordiazePOXIDE HCL 25 MG CAPSULE PO SCH ×2 (17:51→22:30)
[2022-05-22] MEDS ORDERED: INSULIN (LEVEMIR) 100 UNITS/ML UNITS SQ SCH (22:00)
[2022-05-22] MEDS ORDERED: MELATONIN 5 MG TABLETS PO SCH (22:00)
[2022-05-22] MEDS: METHOCARBAMOL 500 MG TABLET PO PRN (22:27)
[2022-05-22] MEDS: THIAMINE HCL 100 MG TABLET (FP) PO SCH (22:27)
[2022-05-22] MEDS: FAMOTIDINE 20 MG TABLET PO SCH (22:30)
[2022-05-23] MEDS: NICOTINE 10 MG CARTRIDGE (INHALER) IH PRN (05:52)
[2022-05-23] MEDS: chlordiazePOXIDE HCL 25 MG CAPSULE PO SCH ×4 (05:54→22:38)
[2022-05-23] MEDS: INSULIN SLIDING SCALE (NOVOLOG) 1 VIAL SQ SCH ×4 (06:42→22:42)
[2022-05-23] MEDS ORDERED: INSULIN SLIDING SCALE (NOVOLOG) 1 VIAL SQ ONE (06:43)
[2022-05-23] MEDS: PRENATAL VITAMINS W/ FOLIC ACID TABLET (FP) PO SCH (10:16)
[2022-05-23] MEDS: ASPIRIN 81 MG CHEWABLE TABLETS PO SCH (10:17)
[2022-05-23] MEDS: FAMOTIDINE 20 MG TABLET PO SCH ×2 (10:17→22:37)
[2022-05-23] MEDS: LISINOPRIL 5 MG TABLET PO SCH (10:18)
[2022-05-23] MEDS: glipiZIDE 10 MG TABLET (FP) PO SCH (10:41)
[2022-05-23 11:28] LABS: BLOOD UREA NITROGEN 14.3 mg/dL (7-18); CALCIUM 8.7 mg/dL (8.5-10.1)
[2022-05-23 11:30] LABS: HEMOGLOBIN 12.6 GM/dL (11.7-16.9); MCH 28.1 pg (25.7-33.7); MEAN CELL VOLUME 82.7 fl (80-96); PLATELET COUNT 234 10^3/uL (134-434); RBC 4.47 M/mm3 (4.00-5.60); WHITE BLOOD COUNT 5.9 K/mm3 (4.0-10.0)
[2022-05-23 11:31] LABS: ALBUMIN 3.3 g/dl (3.4-5.0)
[2022-05-23 11:32] LABS: CREATININE 1.3 mg/dL (0.55-1.3)
[2022-05-23 11:33] LABS: BILIRUBIN,TOTAL 0.8 mg/dL (0.2-1); TOT PROT 6.6 g/dl (6.4-8.2)
[2022-05-23] MEDS ORDERED: INSULIN (NOVOLOG) ASPART 100 UNITS/ML 10ML VIAL SQ ONE (11:38)
[2022-05-23] MEDS: THIAMINE HCL 100 MG TABLET (FP) PO SCH (22:36)
[2022-05-23] MEDS: ATORVASTATIN CA 80 MG TABLET (FP) PO SCH (22:36)
[2022-05-23] MEDS: SUVOREXANT 10 MG TABLET PO PRN (22:40)
[2022-05-23] MEDS: INSULIN (LEVEMIR) 100 UNITS/ML UNITS SQ SCH (22:41)
[2022-05-24] MEDS: chlordiazePOXIDE HCL 25 MG CAPSULE PO SCH ×4 (05:56→22:47)
[2022-05-24] MEDS: IBUPROFEN 600 MG TABLET (FP) PO PRN ×2 (05:57→17:22)
[2022-05-24] MEDS: METHOCARBAMOL 500 MG TABLET PO PRN ×2 (05:57→22:46)
[2022-05-24] MEDS: INSULIN SLIDING SCALE (NOVOLOG) 1 VIAL SQ SCH ×4 (06:45→22:44)
[2022-05-24] MEDS ORDERED: INSULIN SLIDING SCALE (NOVOLOG) 1 VIAL SQ ONE (06:55)
[2022-05-24] MEDS: LISINOPRIL 5 MG TABLET PO SCH (10:26)
[2022-05-24] MEDS: ASPIRIN 81 MG CHEWABLE TABLETS PO SCH (10:26)
[2022-05-24] MEDS: FAMOTIDINE 20 MG TABLET PO SCH ×2 (10:27→22:46)
[2022-05-24] MEDS: PRENATAL VITAMINS W/ FOLIC ACID TABLET (FP) PO SCH (10:27)
[2022-05-24] MEDS: glipiZIDE 10 MG TABLET (FP) PO SCH (11:48)
[2022-05-24] MEDS ORDERED: ALBUTEROL SO4 HFA INHALER IH PRN (16:28)
[2022-05-24 21:28] VITALS: TEMP 97.7
[2022-05-24] MEDS: INSULIN (LEVEMIR) 100 UNITS/ML UNITS SQ SCH (22:42)
[2022-05-24] MEDS: THIAMINE HCL 100 MG TABLET (FP) PO SCH (22:46)
[2022-05-24] MEDS: ATORVASTATIN CA 80 MG TABLET (FP) PO SCH (22:46)
[2022-05-24] MEDS: hydrOXYzine PAMOATE 25 MG CAPSULE (FP) PO PRN (22:46)
[2022-05-24] MEDS: SUVOREXANT 10 MG TABLET PO PRN (22:51)
[2022-05-25] MEDS ORDERED: chlordiazePOXIDE HCL 10 MG CAPSULE PO PRN
[2022-05-25] MEDS: chlordiazePOXIDE HCL 10 MG CAPSULE PO SCH ×2 (05:59→10:24)
[2022-05-25] MEDS: glipiZIDE 10 MG TABLET (FP) PO SCH (06:06)
[2022-05-25] MEDS: INSULIN SLIDING SCALE (NOVOLOG) 1 VIAL SQ SCH ×2 (06:07→11:59)
[2022-05-25 09:54] VITALS: BP 114/70; PULSE 75; RESP 16
[2022-05-25] MEDS: ASPIRIN 81 MG CHEWABLE TABLETS PO SCH (10:24)
[2022-05-25] MEDS: FAMOTIDINE 20 MG TABLET PO SCH (10:24)
[2022-05-25] MEDS: PRENATAL VITAMINS W/ FOLIC ACID TABLET (FP) PO SCH (10:24)
[2022-05-25] MEDS: LISINOPRIL 5 MG TABLET PO SCH (10:24)
[2022-05-25] MEDS: IBUPROFEN 600 MG TABLET (FP) PO PRN (10:45)
[2022-05-25] MEDS ORDERED: GABAPENTIN 300 MG CAPSULE PO SCH (11:00)
[2022-05-25] MEDS ORDERED: GABAPENTIN 400 MG CAPSULE PO ONE (11:04)
[2022-05-25] MEDS ORDERED: INSULIN (LEVEMIR) 100 UNITS/ML UNITS SQ SCH (22:00)
[2022-05-25] MEDS ORDERED: GABAPENTIN 400 MG CAPSULE PO SCH (22:00)
[2022-05-26] MEDS ORDERED: chlordiazePOXIDE HCL 10 MG CAPSULE PO SCH (05:00)
[2022-05-27] MEDS ORDERED: chlordiazePOXIDE HCL 10 MG CAPSULE PO ONE (05:00)
== END 2022-05-25 12:50 | disposition home or self-care (01) | DRG 774 ==
LOC: YASAS 12:45 → Y3N 14:52
PROVIDERS: ADMIT Allergy & Immunology; ATTEND Surgery
PROC: HZ2ZZZZ Detoxification Services for Substance Abuse Treatment (ICD-10-PCS; principal; 2022-05-22)
DX: F10.230 Alcohol dependence with withdrawal, uncomplicated (principal); F14.20 Cocaine dependence, uncomplicated; F17.210 Nicotine dependence, cigarettes, uncomplicated; F19.282 Other psychoactive substance dependence with psychoactive substance-induced sleep disorder; F41.9 Anxiety disorder, unspecified; G62.9 Polyneuropathy, unspecified; I10 Essential (primary) hypertension; K21.9 Gastro-esophageal reflux disease without esophagitis; E11.65 Type 2 diabetes mellitus with hyperglycemia; Z79.4 Long term (current) use of insulin; Z86.19 Personal history of other infectious and parasitic diseases; Z88.0 Allergy status to penicillin
CPT/HCPCS: 36415; 80053; 82962; 83036; 85027; 86593; 86780; C9803-CS; U0003; U0005